=== PATIENT | male | born 1970 | race Caucasian/White ===

== ENCOUNTER 2020-01-18 23:29 | Emergency (ER) | payer MEDICAID ==
[~2020-01-18] VITALS: Ht 172.7 cm; Wt 83.9 kg
[2020-01-18 23:45] VITALS: Ht 172.7 cm; Wt 83.9 kg
[2020-01-19 00:25] VITALS: BP 149/97
== END 2020-01-19 00:25 | disposition left against medical advice (07) ==
LOC: ED 23:29
DX: R05 Cough (principal); F17.210 Nicotine dependence, cigarettes, uncomplicated; I10 Essential (primary) hypertension; J02.9 Acute pharyngitis, unspecified
CPT/HCPCS: 99406; U0003-CS